=== PATIENT | male | born 1975 | race Caucasian/White ===

== ENCOUNTER 2019-12-06 02:03 | Emergency (ER) | payer OTHER ==
[~2019-12-06] VITALS: Ht 177.8 cm; Wt 83.9 kg
[2019-12-06 02:15] VITALS: BP_SYST 143
--- NOTE | 2019-12-06 02:15 | NUR ---
Patient to ER bed 7 for evaluation. Side rails up.
--- NOTE | 2019-12-06 02:20 | NUR ---
Pt C/O allergic reaction since 0100 this morning and administered Epi-pen prior to arrival. Pt was seen a week ago at [facility] after a severe allergic reaction after eating spaghetti. Reports eating pizza earlier in the evening but symptoms did not appear untill 0100. Denies any CP, SOB, N/V, introduced any new foods in diet or any other symptoms at this time. Will continue to monitor.
--- NOTE | 2019-12-06 03:20 | NUR ---
ER Dr. Palomo at bedside examining patient.
--- NOTE | 2019-12-06 03:59 | NUR ---
Pt has been medicated with Benadryl IM for symptoms. Tolerated medication well, will continue to monitor.
[2019-12-06] MEDS ORDERED: DIPHENHYDRAMINE INJ 50 MG/ML VIAL IM ONE (04:00)
[2019-12-06 04:56] VITALS: BP_SYST 143
--- NOTE | 2019-12-06 04:58 | NUR ---
Patient given written and verbal discharge instructions and verbalizes understanding. ER MD discussed with patient the results and treatment provided. Patient in stable condition. ID arm band removed. Rx of Epi-Pen and Benadryl given. Patient educated on pain management and to follow up with PMD. Pain Scale 0. Opportunity for questions provided and answered. Medication side effect fact sheet provided.
== END 2019-12-06 04:56 | disposition home or self-care (01) ==
LOC: SED 02:03
DX: T78.1XXA Other adverse food reactions, not elsewhere classified, initial encounter (principal); X58.XXXA Exposure to other specified factors, initial encounter
CPT/HCPCS: 96372; 99283; J1200

== ENCOUNTER 2019-12-06 17:53 | Emergency (ER) | payer OTHER ==
[~2019-12-06] VITALS: Ht 177.8 cm; Wt 81.6 kg
[2019-12-06 18:04] VITALS: BP_SYST 152
--- NOTE | 2019-12-06 18:07 | NUR ---
Patient to ER bed 08 to gown for evaluation. Side rails up.
--- NOTE | 2019-12-06 18:10 | NUR ---
Patient arrived in the ED c/o swollen lips that started today - Took Benadryl 25mg PO. Was seen yesterday for the same symptoms. Denied any shortness of breath. Denied any fevers or chills. Alert and oriented x4, respirations even and unlabored, speaking in full sentences and ambulating with a steady gait. Instructed to notify ED staff for any changes in condition or worsening of symptoms. Patient verbalized understanding.
--- NOTE | 2019-12-06 18:33 | NUR ---
ER Dr. Mora at bedside examining patient.
[2019-12-06] MEDS ORDERED: DEXAMETHASONE SOD PHOSPHATE 10 MG/ML VIAL IM ONE (18:45)
[2019-12-06] MEDS ORDERED: EPINEPHrine 1 MG/ML AMP IM ONE (18:45)
--- NOTE | 2019-12-06 18:52 | NUR ---
Administered Decadron and Epinephrine IM as ordered by Dr. Mora. Patient tolerated the medications well. See eMAR for details.
--- NOTE | 2019-12-06 19:26 | NUR ---
Report given and care transferred to LILLIAM Nash.
[2019-12-06 19:46] VITALS: BP_SYST 131
--- NOTE | 2019-12-06 19:47 | NUR ---
Patient given written and verbal discharge instructions and verbalizes understanding. ER MD discussed with patient the results and treatment provided. Patient in stable condition. ID arm band removed. Rx of Zyrtec and Prednisone given. Patient educated on pain management and to follow up with PMD. Pain Scale 0. Opportunity for questions provided and answered. Medication side effect fact sheet provided.
== END 2019-12-06 19:46 | disposition home or self-care (01) ==
LOC: SED 17:53
DX: T78.49XA Other allergy, initial encounter (principal); X58.XXXA Exposure to other specified factors, initial encounter
CPT/HCPCS: 96372; 99283; J0171; J1100

== ENCOUNTER 2019-12-21 04:21 | Emergency (ER) | payer OTHER ==
[~2019-12-21] VITALS: Ht 177.8 cm; Wt 81.6 kg
[2019-12-21 04:25] VITALS: BP_SYST 125
--- NOTE | 2019-12-21 04:25 | NUR ---
Note undone in EDM - 12/21/19 at 0442 by ALEX Pt placed to ER bed 08. Pt c/o left posterior tongue swelling since 199. Allergen unknown. He had a similar episode 2 weeks ago after eating pasta sauce. 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 Airway patent, even and non-labored respirations.
--- NOTE | 2019-12-21 04:29 | NUR ---
Pt to ER waiting room in stable condition. Airway patent, NAD.
--- NOTE | 2019-12-21 04:35 | NUR ---
Pt placed to ER bed 08. Pt c/o left posterior tongue swelling since 0200. Allergen unknown. He had a similar episode 2 weeks ago after eating pasta sauce. 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 Airway patent, even and non-labored respirations.
--- NOTE | 2019-12-21 04:42 | NUR ---
Dr. Cox at bedside.
--- NOTE | 2019-12-21 04:46 | NUR ---
Per assessment of Dr. Cox, Uvula and soft palate swelling noted.
[2019-12-21 06:35] VITALS: BP_SYST 119
--- NOTE | 2019-12-21 06:35 | NUR ---
Patient given written and verbal discharge instructions and verbalizes understanding. ER MD Cox discussed with patient the results and treatment provided. Patient in stable condition. ID arm band removed. Rx of epipen given. Patient educated on pain management and to follow up with PMD. Pain Scale 0/10. Opportunity for questions provided and answered. Medication side effect fact sheet provided.
== END 2019-12-21 06:35 | disposition home or self-care (01) ==
LOC: SED 04:21
DX: T78.3XXA Angioneurotic edema, initial encounter (principal); F17.290 Nicotine dependence, other tobacco product, uncomplicated
CPT/HCPCS: 99282